=== PATIENT | female | born 1965 | race Caucasian/White ===

== ENCOUNTER 2018-05-29 14:25 | Inpatient (IN) | payer MEDICARE, MEDICAID ==
--- NOTE | 2018-05-29 16:03 | RAD ---
2 VIEWS RIGHT FEMUR: Date: 05/29/18 HISTORY: Pain after injury and fall. FINDINGS: AP and lateral views of right femur obtained. Images demonstrate a displaced intertrochanteric fractu re involving the proximal right femur. Lesser trochanter is medially displaced. There is some impacti on and shortening. IMPRESSION: Intertrochanteric proximal right femoral fracture. POS: [facility]
--- NOTE | 2018-05-29 16:04 | RAD ---
AP VIEW PELVIS: Date: 05/29/18 HISTORY: Pelvic pain. FINDINGS/IMPRESSION: AP view of pelvis obtained and demonstrates intertrochanteric proximal right femoral fracture. POS: [facility]
[2018-05-29] MEDS ORDERED: Morphine 4 MG/ML VIAL ONE (16:41)
[2018-05-29] MEDS ORDERED: Fentanyl 100 MCG/2 ML VIAL ONE (16:54)
--- NOTE | 2018-05-29 17:50 | RAD ---
FRONTAL RADIOGRAPH CHEST: Date: 05/29/18 COMPARISON: None. HISTORY: Preoperative patient, seizure. FINDINGS: No pneumothorax or pleural fluid. No focal consolidation or alveolar edema. IMPRESSION: No acute findings. POS: [facility]
[2018-05-29 18:06] LABS: Hemoglobin 8.7 g/dL (12.0-16.0); Mean Corpuscular HGB CONC 29.4 g/dL (32.0-36.0); Mean Corpuscular Hemoglobin 18.9 pg (27.0-31.0); Mean Corpuscular Volume 64.4 fL (78.0-98.0); Mean Platelet Volume 9.1 fL (7.4-10.4); Platelet Count 176 thou/uL (130-400); RBC Distribution Width 17.7 % (11.5-14.5); Red Blood Cell (RBC) Count 4.62 mill/uL (4.20-5.40); White Blood Cell (WBC) Count 4.8 thou/uL (4.8-10.8)
[2018-05-29 18:11] LABS: PTT 28.4 SEC (22.9-36.1); Prothrombin Time 13.7 SEC (12.0-14.7)
[2018-05-29] MEDS ORDERED: Dextrose 5% in Water 1,000 ML IV PRN (18:15)
[2018-05-29] MEDS ORDERED: hydrALAZINE 20 MG/ML VIAL SLOW IVP PRN (18:15)
[2018-05-29] MEDS ORDERED: Dextrose 50% Abboject 50 ML SYRINGE SLOW IVP PRN (18:15)
[2018-05-29] MEDS ORDERED: HumaLOG 300 UNITS/3 ML VIAL SC PRN (18:15)
[2018-05-29 18:25] LABS: #Lymphocytes 1.3 thou/uL (1.20-3.40); #Monocytes 0.4 thou/uL (0.11-0.59); #Neutrophils 3.1 thou/uL (1.40-6.50); %Basophils 0.1 % (0.0-1.0); %Eosinophils 0.3 % (0.0-10.0); %Lymphocytes 26.6 % (21.0-51.0); %Monocytes 7.7 % (0.0-10.0); %Neutrophils 65.2 % (42.0-75.0); Anisocytosis SLIGHT = 6-15 cells (100X) (0-5/hpf); Elliptocytes SLIGHT = 2-5 cells (100X) (0-1/hpf); Hypochromia MODERATE=16-30 cells (100X) (0-5/hpf); MDiff Complete? YES; Microcytosis MODERATE=15-30 cells (100X) (0-5/hpf); Platelet Morphology Comment Appears Adequate; Poikilocytosis SLIGHT = 6-15 cells (100X) (0-5/hpf); Tear Drops SLIGHT = 2-5 cells (100X) (0-1/hpf)
[2018-05-29 18:30] LABS: ALT (SGPT) 16 U/L (8-55); AST (SGOT) 27 U/L (5-34); Acetaminophen Less than 6.0 mcg/mL (10.0-30.0); Alcohol Less than 10 mg/dL (Less than 10); Alkaline Phosphatase 132 U/L (40-150); Anion Gap 17 mmol/L (10-20); BUN (Urea Nitrogen) 7 mg/dL (9.8-20.1); Bilirubin, Total 0.5 mg/dL (0.2-1.2); Calc. Creatinine Clearance 0 mL/min (70-130); Calcium 8.7 mg/dL (7.8-10.44); Carbon Dioxide 19 mmol/L (22-29); Chloride 105 mmol/L (98-107); Estimated GFR-MDRD Greater than 90; Globulin 3.2 g/dL (2.4-3.5); Glucose 88 mg/dL (70-105); Potassium 3.2 mmol/L (3.5-5.1); Protein, Total 7.2 g/dL (6.0-8.3); Salicylate Less than 8.0 mg/dL (15.0-30.0); Sodium 138 mmol/L (136-145)
[2018-05-29] MEDS ORDERED: traMADol HCl 50 MG TAB PO PRN ×2 (18:31)
[2018-05-29] MEDS ORDERED: CEFAZOLIN 2 GM/50 ML BAG IVPB SCH (18:45)
[2018-05-29] MEDS: Acetaminophen 325 MG TAB PO SCH (22:37)
[2018-05-29] MEDS: Senokot S 8.6-50 MG TAB PO SCH (22:38)
[2018-05-29] MEDS: Cyclobenzaprine 10 MG TAB PO PRN (22:38)
[2018-05-29] MEDS: Famotidine/PF 20 mg/2ml Vial SLOW IVP SCH (22:38)
[2018-05-29] MEDS: Gabapentin 100 MG CAP PO SCH (22:38)
[2018-05-29] MEDS: Sodium Chloride 0.9% 1,000 ML IV SCH (22:40)
--- NOTE | 2018-05-29 22:44 | HP ---
REFERRING PHYSICIAN: Dr. Collette Sharif. TRAUMA SURGEON: Dr. Simeon Viveros. CONSULTING PHYSICIAN: Dr. Goldy Nichols. HISTORY OF PRESENT ILLNESS: A 53-year-old female presents this afternoon to the emergency department status post fall of unknown etiology with a right intertrochanteric femur fracture. The patient reports she does not remember the fall. She reports waking up this morning and having significant right proximal thigh pain. She lives with her son and asked him what happened. Her son reported that she had fallen and he had picked her up and put her in the bed. The patient is amnestic to the events. She does not take any anticoagulants. She does not report any other recent incidence of falls. REVIEW OF SYSTEMS: All additional review of systems negative except as indicated above. PAST MEDICAL HISTORY: Nutrition malabsorption, anxiety, PTSD, and depression. PAST SURGICAL HISTORY: Gastric bypass with sleeve revision, cholecystectomy. SOCIAL HISTORY: The patient smokes 4th of a pack of tobacco cigarettes each day, reports occasional alcohol use as early as the past 24 hours. She denies any illegal drug use. MEDICATIONS: She takes 0.5 mg alprazolam b.i.d. and 45 mg Remeron at bedtime. ALLERGIES: MORPHINE, ASPIRIN, DILAUDID, AND ZOFRAN. PHYSICAL EXAMINATION: VITAL SIGNS: Pulse 92, blood pressure 146/64, respirations 18, temperature 97.6, saturating 99% on room air. PRIMARY SURVEY: Airway intact, equal breath sounds bilaterally, 2+ pulses in radial, femoral, and DP/PT bilaterally. GCS 15. Gross motor and sensation intact. No lacerations, bruises, or external bleeding. SECONDARY ASSESSMENT: HEAD: Normocephalic, atraumatic, no gross palpable skull deformities/tenderness. EYES: Pupils 3 to 2 bilaterally, pupils equal, round, reactive to light, patient tracking, sclerae noninjected. ENT: No hemotympanum. No epistaxis. No septal hematoma. Midface is stable to palpation. No blood in oropharynx, dentition intact-patient missing upper teeth, which is chronic, no anterior neck injury/crepitus/tenderness. C-SPINE: No step-offs or deformities, nontender. No C-collar in place. CHEST: Nontender. No crepitus. No abrasions/ecchymosis, equal chest movement. ABDOMEN: Soft, nontender, nondistended. PELVIS: Stable to palpation. Tenderness on the right lateral hip, no abrasions or ecchymoses noted. GENITOURINARY: Deferred. EXTREMITIES: No gross deformity, no abrasions or ecchymosis noted, 2+ radial/femoral/DP/PT pulses present bilaterally, tenderness to right upper thigh. BACK/SPINE: No step-offs, deformities, or tenderness to palpation of thoracic/lumbar spine. No abrasions/ecchymosis noted. NEURO: 5/5 strength in bilateral child support investigator, plantar flexion and dorsal flexion. Gross normal sensation x4 extremities. LABORATORY DATA: White count 4.8, hemoglobin 8.7, hematocrit 29.7, platelets 176. INR 1.0. Sodium 138, potassium 3.2, chloride 105, carbon dioxide 19, BUN 7, creatinine 0.58, glucose 88. DIAGNOSTIC DATA: X-ray of the right femur demonstrates intertrochanteric proximal right femur fracture. Chest x-ray demonstrates no pneumothorax or pleural effusion. No focal consolidation or alveolar edema. The patient also received an EKG which demonstrated normal sinus rhythm with no ST changes or ectopy. ASSESSMENT: 1. Status post fall with unknown etiology. 2. Right intertrochanteric proximal femur fracture. 3. History of nutritional malabsorption, anxiety, posttraumatic stress disorder, depression. PLAN: The patient will be admitted to the trauma service and be n.p.o. overnight. We will start pain control with Tylenol, ibuprofen, Flexeril, and tramadol. The patient has received an EKG which was within normal limits. Lab studies did not indicate reason for possible syncopal episode. We will complete echo before OR tomorrow. The patient was seen by Dr. Nichols and plan is to go to the OR at 1:00 p.m. on May 30 for fix of her right intertrochanteric femur fracture. The patient was discussed with Dr. Simeon Viveros. Job ID: [id number]
[2018-05-29] MEDS ORDERED: Morphine 4 MG/ML VIAL SLOW IVP PRN ×2 (22:47)
[2018-05-29 23:11] VITALS: BMI 21.4
[2018-05-29] MEDS: Fentanyl 100 MCG/2 ML VIAL SLOW IVP PRN (23:17)
[2018-05-30] MEDS: Promethazine HCl 25 MG/ML VIAL IM PRN ×3 (00:39→19:37)
[2018-05-30] MEDS: Fentanyl 100 MCG/2 ML VIAL SLOW IVP PRN ×5 (03:00→22:55)
[2018-05-30 06:34] LABS: Anion Gap 13 mmol/L (10-20); BUN (Urea Nitrogen) 5 mg/dL (9.8-20.1); Calc. Creatinine Clearance 104 mL/min (70-130); Calcium 8.3 mg/dL (7.8-10.44); Carbon Dioxide 22 mmol/L (22-29); Chloride 103 mmol/L (98-107); Estimated GFR-MDRD Greater than 90; Glucose 82 mg/dL (70-105); Sodium 135 mmol/L (136-145)
[2018-05-30 06:35] LABS: Phosphorus 2.9 mg/dL (2.3-4.7)
[2018-05-30 06:38] LABS: #Lymphocytes 1.5 thou/uL (1.20-3.40); #Monocytes 0.3 thou/uL (0.11-0.59); #Neutrophils 2.1 thou/uL (1.40-6.50); %Basophils 0.1 % (0.0-1.0); %Eosinophils 0.4 % (0.0-10.0); %Lymphocytes 37.8 % (21.0-51.0); %Monocytes 8.5 % (0.0-10.0); %Neutrophils 53.3 % (42.0-75.0); Hemoglobin 7.7 g/dL (12.0-16.0); Mean Corpuscular Hemoglobin 19.3 pg (27.0-31.0); Mean Corpuscular Volume 64.5 fL (78.0-98.0); Mean Platelet Volume 7.8 fL (7.4-10.4); Platelet Count 146 thou/uL (130-400); Potassium 2.8 mmol/L (3.5-5.1); RBC Distribution Width 17.5 % (11.5-14.5); Red Blood Cell (RBC) Count 3.99 mill/uL (4.20-5.40); White Blood Cell (WBC) Count 3.9 thou/uL (4.8-10.8)
[2018-05-30] MEDS ORDERED: Potassium Chloride 40 MEQ in Premix Bag 1 BAG IVPB SCH (07:00)
--- NOTE | 2018-05-30 07:18 | CON ---
DATE OF CONSULTATION: 05/29/2018 BRIEF HISTORY OF PRESENT ILLNESS: The patient was examined in the [facility] Emergency Room. She is a 53-year-old female, who early this morning apparently had a fall, although she does not recall the event and it was unwitnessed. Earlier this morning, she was found to be unable to ambulate with complaints of right hip pain. She reports that the evening prior to this episode, she did have a seizure. She was brought to the hospital by her son. X-rays were obtained and showed a comminuted intertrochanteric femur fracture on the right side and as such, the patient now admitted to the Trauma Service with orthopedic consultation requested. PAST MEDICAL HISTORY: Remarkable for a history of seizure, history of anxiety, and history of depression. PAST SURGICAL HISTORY: Includes gastric bypass with sleeve revision as well as cholecystectomy. MEDICATIONS: The patient takes, 1. Remeron. 2. Alprazolam. ALLERGIES: TO MORPHINE, ASPIRIN, DILAUDID, AND ZOFRAN. SOCIAL HISTORY: She smokes cigarettes daily with a pack lasting approximately four days. She does drink alcohol occasionally. REVIEW OF SYSTEMS: Denies recent fevers, chills, or sweats. She does report a recent seizure that she says was last night. No chest pain or shortness of breath. She denies numbness or tingling in the lower extremity. FAMILY HISTORY: Noncontributory. PHYSICAL EXAMINATION: VITAL SIGNS: Temperature 97.6, heart rate of 92, respiratory rate of 18, and blood pressure of 146/64. HEENT: Atraumatic and normocephalic. HEART: Shows a regular rate and rhythm without murmur. LUNGS: Clear to auscultation bilaterally with good breath sounds. There is no chest wall pain. ABDOMEN: Soft and nontender. Her pelvis is stable to lateral compression. EXTREMITIES: Remarkable for bilateral upper extremities with no deformities and no complaints of pain, and left lower extremity also without deformity and no complaints of pain and normal distal sensation subjectively. The right lower extremity is remarkable for being held in slight external rotation and some shortening of the femur is noted. She has pain with any type of motion of this leg, referred to the groin area and lateral proximal hip. The knee, ankle, and foot appear atraumatic. She has intact subjective sensation in the foot. She has no pain with passive stretch of the toes or ankles. She has 2+ dorsalis pedis pulse. LABORATORY DATA: White count 4.8, hematocrit 29.7, and 176,000 platelets. IMAGING STUDIES: X-rays right femur demonstrate a right intertrochanteric femur fracture with displacement. ASSESSMENT: A 53-year-old lady, status post fall of unknown etiology with sustaining a right intertrochanteric femur fracture. PLAN: At this time, the patient has been admitted to the Trauma Service. We will allow her to eat this evening, so they can complete her medical workup in anticipation for surgical stabilization of this intertrochanteric femur fracture. Today, I discussed with patient that we will proceed with a trochanteric femoral nail to stabilize this fracture. We also discussed risks of surgery which include, but are not limited to bleeding, infection, nerve injury, DVT, PE, malunion, nonunion, and hardware failure as well as loss of limb or life. The patient appears to understand and does wish to proceed. Consent will be obtained prior to surgery. Job ID: [id number]
[2018-05-30 07:19] LABS: Hypochromia MARKED = >30 cells (100X) (0-5/hpf); MDiff Complete? YES; Microcytosis MODERATE=15-30 cells (100X) (0-5/hpf); Ovalocytes SLIGHT = 2-5 cells (100X) (0-1/hpf); Platelet Morphology Comment Appears Adequate; Polychromasia SLIGHT = 2-3 cells (100X) (0-2/hpf); Target Cells SLIGHT = 2-5 cells (100X) (0-1/hpf); Tear Drops SLIGHT = 2-5 cells (100X) (0-1/hpf)
[2018-05-30] MEDS: Acetaminophen 325 MG TAB PO SCH ×4 (07:27→23:02)
[2018-05-30] MEDS: Sodium Chloride 0.9% 1,000 ML IV SCH ×2 (07:27→16:21)
[2018-05-30] MEDS ORDERED: Potassium Phosphate 30 MMOL in Sodium Chloride 0.9% 500 ML IVPB ONE (07:42)
[2018-05-30] MEDS: Potassium Chloride 20 MEQ in Premix Bag 1 BAG IVPB SCH ×2 (08:41→16:22)
[2018-05-30] MEDS: Gabapentin 100 MG CAP PO SCH ×3 (08:41→20:08)
[2018-05-30] MEDS: Polyethylene Glycol 3350 17 GM Packet PO SCH (08:42)
[2018-05-30] MEDS: Senokot S 8.6-50 MG TAB PO SCH ×2 (08:42→20:08)
[2018-05-30] MEDS: Famotidine/PF 20 mg/2ml Vial SLOW IVP SCH ×2 (08:44→20:07)
[2018-05-30] MEDS ORDERED: CEFAZOLIN 2 GM/50 ML BAG ONE (11:59)
[2018-05-30 13:04] LABS: Anion Gap 11 mmol/L (10-20); Carbon Dioxide 22 mmol/L (22-29); Chloride 104 mmol/L (98-107); Potassium 3.4 mmol/L (3.5-5.1); Sodium 134 mmol/L (136-145)
[2018-05-30] MEDS ORDERED: CEFAZOLIN/Water 2 GM/20 ML SYRINGE SLOW IVP SCH (13:15)
[2018-05-30] MEDS ORDERED: Midazolam HCl 2 mg/2 ml Vial ONE (13:22)
[2018-05-30] MEDS ORDERED: Midazolam HCl 5 mg/5 ml Vial ONE (13:26)
[2018-05-30] MEDS ORDERED: KETAMINE 100 MG/ML (5ML VIAL) ONE (13:26)
[2018-05-30] MEDS ORDERED: Propofol 500 MG/50 ML VIAL ONE (14:21)
[2018-05-30] MEDS: CEFAZOLIN 2 GM/50 ML-DEXTROSE 2 GM in Premix Bag 1 BAG IVPB SCH ×2 (14:21→22:48)
[2018-05-30] MEDS ORDERED: Promethazine HCl 25 MG/ML VIAL IM PRN (14:50)
[2018-05-30] MEDS ORDERED: Promethazine HCl 25 MG/ML VIAL SLOW IVP PRN (14:50)
--- NOTE | 2018-05-30 15:04 | PRG ---
DATE OF SERVICE: 05/30/2018 SUBJECTIVE: The patient is a status post fall with a right intertrochanteric femur fracture. The patient was seen this morning, lying in bed, reported right thigh pain and tenderness. She is going to the OR today with Dr. Nichols. She has been n.p.o. and is on IV fluids. OBJECTIVE: VITAL SIGNS: Temperature is 99.3, pulse 78, respirations 18, oxygen saturation 98% on room air, and blood pressure 128/75. GENERAL: Alert and well appearing, middle-aged woman, lying in bed. NEURO: GCS is 15. Alert and oriented x3. Gross motor and sensation intact. Pupils are equal, round, and reactive to light. PULMONARY: No signs of acute distress. Equal chest rise and fall. Lung zarco are clear bilaterally. HEART: Regular rate and rhythm. No murmurs, gallops, or rubs. GASTROINTESTINAL: Abdomen is soft, nontender, and nondistended. Positive bowel sounds. EXTREMITIES: Gross motor and sensation intact. 2+ pulses in all extremities. No swelling. Right thigh tenderness to palpation. LABORATORY FINDINGS: White count 3.9, hemoglobin 7.7, hematocrit 25.8, and platelets 146. Sodium 135, potassium 2.8, chloride 103, carbon dioxide 22, BUN 5, and creatinine 0.56. DIAGNOSTIC FINDINGS: There were no diagnostic findings to report. ASSESSMENT: 1. Status post fall of unknown etiology. 2. Right intertrochanteric femur fracture. 3. History of nutritional malabsorption. 4. Anxiety. 5. Post-traumatic stress disorder. 6. Depression. PLAN: The patient will go to the OR today with Dr. Nichols. She will continue to be n.p.o. with normal saline. We will continue current pain regimen. Physical and Occupational Therapy will see the patient postop. The patient received an EKG and chest x-ray in the emergency department, which were within normal limits. She is pending an echo today. We will follow up results. The patient was seen and examined today by Dr. Coleman, during morning rounds. Job ID: [id number]
[2018-05-30] MEDS ORDERED: PROPOFOL 200 MG/20 ML VIAL ONE (15:26)
[2018-05-30] MEDS ORDERED: PHENYLEPHRINE-NS 100 MCG/ML 10 ML SYRINGE ONE (15:26)
[2018-05-30] MEDS: Mirtazapine 30 MG TAB PO SCH (20:08)
[2018-05-31] MEDS: Promethazine HCl 25 MG/ML VIAL IM PRN ×3 (00:34→21:06)
[2018-05-31] MEDS: Fentanyl 100 MCG/2 ML VIAL SLOW IVP PRN ×5 (03:12→23:46)
[2018-05-31] MEDS: Cyclobenzaprine 10 MG TAB PO PRN ×2 (03:14→12:01)
[2018-05-31] MEDS: Sodium Chloride 0.9% 1,000 ML IV SCH ×3 (03:26→21:04)
[2018-05-31 06:21] LABS: #Lymphocytes 1.8 thou/uL (1.20-3.40); #Monocytes 0.4 thou/uL (0.11-0.59); #Neutrophils 3.2 thou/uL (1.40-6.50); %Basophils 0.5 % (0.0-1.0); %Eosinophils 0.3 % (0.0-10.0); %Monocytes 7.3 % (0.0-10.0); %Neutrophils 58.9 % (42.0-75.0); Mean Corpuscular Hemoglobin 19.5 pg (27.0-31.0); Mean Platelet Volume 7.3 fL (7.4-10.4); Platelet Count 168 thou/uL (130-400); RBC Distribution Width 17.8 % (11.5-14.5); Red Blood Cell (RBC) Count 4.09 mill/uL (4.20-5.40); White Blood Cell (WBC) Count 5.5 thou/uL (4.8-10.8)
[2018-05-31 06:45] LABS: Anion Gap 13 mmol/L (10-20); BUN (Urea Nitrogen) Less than 4 mg/dL (9.8-20.1); Calc. Creatinine Clearance 95 mL/min (70-130); Calcium 8.4 mg/dL (7.8-10.44); Carbon Dioxide 22 mmol/L (22-29); Chloride 103 mmol/L (98-107); Estimated GFR-MDRD Greater than 90; Glucose 80 mg/dL (70-105); Magnesium 1.6 mg/dL (1.6-2.6); Phosphorus 2.5 mg/dL (2.3-4.7); Sodium 135 mmol/L (136-145)
[2018-05-31 06:50] LABS: Potassium 2.9 mmol/L (3.5-5.1)
[2018-05-31] MEDS: Acetaminophen 325 MG TAB PO SCH ×4 (06:53→23:48)
[2018-05-31] MEDS ORDERED: Potassium Chloride 40 MEQ in Premix Bag 1 BAG IVPB SCH (07:15)
[2018-05-31] MEDS ORDERED: Potassium Chloride 40 MEQ in Sodium Chloride 0.9% 250 ML 250 ML IVPB SCH (07:30)
[2018-05-31] MEDS ORDERED: Magnesium Sulfate 3 GM in Sodium Chloride 0.9% 250 ML 250 ML IVPB SCH (07:30)
[2018-05-31] MEDS: Gabapentin 100 MG CAP PO SCH ×3 (08:08→21:06)
[2018-05-31] MEDS: Famotidine/PF 20 mg/2ml Vial SLOW IVP SCH (08:09)
[2018-05-31] MEDS: Polyethylene Glycol 3350 17 GM Packet PO SCH (08:09)
[2018-05-31] MEDS ORDERED: Magnesium Sulfate 4 GM, Potassium Chloride 40 MEQ in Sodium Chloride 0.9% 250 ML 250 ML IVPB SCH (10:15)
[2018-05-31 11:22] LABS: Troponin I Less than 0.010 ng/mL (< 0.028)
[2018-05-31] MEDS: Senokot S 8.6-50 MG TAB PO SCH (11:51)
--- NOTE | 2018-05-31 14:24 | RAD ---
INTRAOPERATIVE IMAGING OF RIGHT HIP: Date; 05/30/18 HISTORY: Fracture, status post open reduction and internal fixation. FINDINGS: Three intraoperative images are provided, demonstrating treatment of the previously noted displaced p roximal right femur fracture. Hardware includes a screw traversing the femoral neck and an antegrade intramedullary suha with a distal interlocking screw. IMPRESSION: Open reduction and internal fixation as above. POS: [facility]
--- NOTE | 2018-05-31 18:09 | PRG ---
DATE OF SERVICE: 05/31/2018 SUBJECTIVE: The patient is status post fall with a right intertrochanteric femur fracture. The patient is postop day #1. The patient is lying in bed, in no distress at this time. The patient reports that her pain is well controlled. The patient is tolerating a regular diet, but is requesting to have Glucerna also. OBJECTIVE: VITAL SIGNS: Temperature 98.7, pulse 81, respirations 16, SpO2 of 98% on room air, blood pressure 126/79. GENERAL: The patient is awake and alert, in no distress. NEUROLOGIC: GCS is 15. Alert and oriented x3. Gross motor and sensation intact. RESPIRATORY: No signs of distress. Equal chest rise and fall. CARDIOVASCULAR: Regular rate and rhythm. The patient did complain of palpitations, which she has had for several years. Heart rate was regular. GI: Abdomen is soft, nontender. The patient is passing gas. EXTREMITIES: Moves all extremities. Clean and dry dressing to right hip. No pedal edema. LABORATORY FINDINGS: WBC 5.5, RBC 4.09, hemoglobin 8.0, hematocrit 26.5, platelets 168. Sodium 135, potassium 2.9, chloride 103, CO2 of 22, BUN less than 4, creatinine 0.61, glucose 80, calcium 8.4, phosphorus 2.5, and magnesium 1.6. Troponin less than 0.010. DIAGNOSTICS: No diagnostics reported. IMPRESSION: 1. Status post fall of unknown etiology. 2. Right intertrochanteric femur fracture, postop day #1. 3. History of nutritional malabsorption. 4. Anxiety. 5. Posttraumatic stress disorder. 6. Depression. 7. Hypokalemia. PLAN: We will continue the patient's pain regimen. Physical therapy and occupational therapy to continue to work with the patient. We will obtain a troponin and repeat if elevated due to the patient complaining of palpitations occasionally. We will replace the patient's electrolytes and re-evaluate tomorrow. We will order Glucerna to supplement the patient's diet. Rehab screen has been ordered. Pending echo results. We will continue comfort measures. This patient was seen and examined today by Dr. Coleman during morning rounds. Job ID: [id number]
[2018-05-31] MEDS: Famotidine 20 MG TAB PO SCH (21:06)
[2018-05-31] MEDS: Mirtazapine 30 MG TAB PO SCH (21:07)
[2018-06-01] MEDS: Fentanyl 100 MCG/2 ML VIAL SLOW IVP PRN ×5 (03:58→16:42)
[2018-06-01] MEDS: Promethazine HCl 25 MG/ML VIAL IM PRN ×3 (05:28→15:29)
[2018-06-01] MEDS: Acetaminophen 325 MG TAB PO SCH ×4 (05:29→23:24)
[2018-06-01] MEDS: Sodium Chloride 0.9% 1,000 ML IV SCH ×2 (07:41→16:48)
[2018-06-01 08:33] LABS: Anion Gap 9 mmol/L (10-20); BUN (Urea Nitrogen) 4 mg/dL (9.8-20.1); Calc. Creatinine Clearance 114 mL/min (70-130); Calcium 8.3 mg/dL (7.8-10.44); Carbon Dioxide 25 mmol/L (22-29); Chloride 107 mmol/L (98-107); Estimated GFR-MDRD Greater than 90; Glucose 91 mg/dL (70-105); Potassium 3.1 mmol/L (3.5-5.1); Sodium 138 mmol/L (136-145)
[2018-06-01] MEDS ORDERED: Potassium Phosphate 30 MMOL in Sodium Chloride 0.9% 500 ML IVPB SCH (08:45)
[2018-06-01] MEDS: Gabapentin 100 MG CAP PO SCH ×3 (09:00→20:44)
[2018-06-01] MEDS: Cyclobenzaprine 10 MG TAB PO PRN (09:01)
[2018-06-01] MEDS: Famotidine 20 MG TAB PO SCH ×2 (09:01→20:44)
[2018-06-01] MEDS: Polyethylene Glycol 3350 17 GM Packet PO SCH (09:01)
[2018-06-01] MEDS: Senokot S 8.6-50 MG TAB PO SCH ×3 (09:02→20:50)
[2018-06-01] MEDS ORDERED: Ferrous Sulfate 325 MG TAB PO PRN (12:38)
--- NOTE | 2018-06-01 19:10 | PRG ---
DATE OF SERVICE: 06/01/2018 SUBJECTIVE: This is a 53-year-old female, status post fall with a right intertrochanteric femur fracture, postop day #2. The patient is sitting up in bed, in no distress at this time. The patient is eating breakfast. States her appetite has not been very good, but this is normal for the patient. The patient reports pain is adequately controlled. The patient did have overnight highest temperature of 99.9. OBJECTIVE: VITAL SIGNS: Temperature 99.2, pulse 82, respirations 20, SpO2 100 % on room air, blood pressure 102/54. GENERAL: The patient awake, alert, in no distress. GCS 15. RESPIRATORY: No signs of distress. Equal chest rise and fall. Respirations nonlabored. CARDIOVASCULAR: Regular rate and rhythm. No pedal edema. GI: Abdomen is soft, nontender. EXTREMITIES: Moves all extremities. Strength 5/5. Clean and dry dressing to right hip. No pedal edema. LABORATORY DATA: Sodium 138, potassium 3.1, chloride 107, BUN 4, creatinine 0.51, estimated GFR greater than 90, glucose 91, calcium 8.3. DIAGNOSTICS: There are no diagnostics to report today. IMPRESSION: 1. Status post fall, unknown etiology. 2. Right intratrochanteric femur fracture, postop day #2. 3. History of nutritional mouth absorption. 4. Anxiety. 5. Posttraumatic stress disorder. 6. Depression. 7. Hypokalemia. PLAN: We will continue the patient's pain regimen. Continue physical therapy and occupational therapy. Pending placement to a custodial facility in [place]. We will replace the patient's potassium again today. We will continue supplement with Glucerna. We will add vitamin C and iron. The patient has been discussed with the attending surgeon and agrees with the plan. Job ID: [id number] [facility]
[2018-06-01] MEDS: Mirtazapine 30 MG TAB PO SCH (20:44)
--- NOTE | 2018-06-02 00:05 | EKG ---
Test Reason : SURGERY Blood Pressure : / mmHG Vent. Rate : 084 BPM Atrial Rate : 084 BPM P-R Int : 134 ms QRS Dur : 074 ms QT Int : 414 ms P-R-T Axes : 064 044 046 degrees QTc Int : 489 ms Normal sinus rhythm Prolonged QT Abnormal ECG Confirmed by RACHEAL GAVIN, CATHY ([id number]), tape editor ARUN GHOSH ([id number]) on 06/02/2018 12:04:22 AM Referred By: Confirmed By:CATHY SPRINGER MD
[2018-06-02] MEDS: Fentanyl 100 MCG/2 ML VIAL SLOW IVP PRN ×5 (02:17→22:34)
[2018-06-02] MEDS ORDERED: Ibuprofen 800 MG TAB PO PRN (04:12)
[2018-06-02] MEDS: Acetaminophen 325 MG TAB PO SCH ×4 (06:24→23:52)
[2018-06-02] MEDS: Promethazine HCl 25 MG/ML VIAL IM PRN ×4 (06:24→23:50)
[2018-06-02] MEDS: Sodium Chloride 0.9% 1,000 ML IV SCH ×2 (06:29→12:05)
[2018-06-02 07:49] LABS: Anion Gap 17 mmol/L (10-20); BUN (Urea Nitrogen) 4 mg/dL (9.8-20.1); Calc. Creatinine Clearance 119 mL/min (70-130); Calcium 8.1 mg/dL (7.8-10.44); Carbon Dioxide 18 mmol/L (22-29); Chloride 105 mmol/L (98-107); Estimated GFR-MDRD Greater than 90; Glucose 76 mg/dL (70-105); Magnesium 1.6 mg/dL (1.6-2.6); Phosphorus 2.4 mg/dL (2.3-4.7); Potassium 3.6 mmol/L (3.5-5.1); Sodium 136 mmol/L (136-145)
[2018-06-02] MEDS: Famotidine 20 MG TAB PO SCH ×2 (08:26→20:26)
[2018-06-02] MEDS: Ascorbic Acid 500 mg Chewable Tablet PO SCH (08:26)
[2018-06-02] MEDS: Gabapentin 100 MG CAP PO SCH ×3 (08:26→20:26)
[2018-06-02] MEDS: Polyethylene Glycol 3350 17 GM Packet PO SCH (08:28)
[2018-06-02] MEDS: Senokot S 8.6-50 MG TAB PO SCH (08:28)
[2018-06-02] MEDS ORDERED: Senokot S 8.6-50 MG TAB PO SCH (12:45)
[2018-06-02] MEDS ORDERED: Senokot S 8.6-50 MG TAB PO PRN (12:49)
[2018-06-02 12:56] LABS: Anisocytosis MODERATE=16-30 cells (100X) (0-5/hpf); Eosinophils 2 % (0-10); Hemoglobin 6.9 g/dL (12.0-16.0); Hypochromia MODERATE=16-30 cells (100X) (0-5/hpf); Large Platelets SLIGHT; Lymphocytes 12 % (21-51); MDiff Complete? YES; Mean Corpuscular HGB CONC 27.5 g/dL (32.0-36.0); Mean Corpuscular Hemoglobin 18.1 pg (27.0-31.0); Mean Corpuscular Volume 65.6 fL (78.0-98.0); Mean Platelet Volume 7.7 fL (7.4-10.4); Microcytosis MODERATE=15-30 cells (100X) (0-5/hpf); Monocytes 5 % (0-10); Neutrophil 76 % (42-75); Platelet Count 193 thou/uL (130-400); Platelet Morphology Comment Appears Adequate; Polychromasia SLIGHT = 2-3 cells (100X) (0-2/hpf); RBC Distribution Width 18.5 % (11.5-14.5); Reactive Lymphocytes 4 % (0-10); Red Blood Cell (RBC) Count 3.81 mill/uL (4.20-5.40); Target Cells MODERATE= 6-15 cells (100X) (0-1/hpf); White Blood Cell (WBC) Count 5.6 thou/uL (4.8-10.8)
--- NOTE | 2018-06-02 13:15 | PRG ---
DATE OF SERVICE: 06/02/2018 SUBJECTIVE: This is a 53-year-old female status post fall with a right intertrochanteric femur fracture, postop day #3. The patient is sitting up in bed, in no distress at this time. The patient just got done eating her breakfast and reports that she does have a better appetite today. The patient's pain continues to be well controlled. The patient had no reports of fever overnight. The patient does occasionally suffer from a dumping syndrome. The patient did state she did have an episode yesterday of dumping. OBJECTIVE: VITAL SIGNS: Temperature 98.3, pulse 98, respirations 15, SpO2 of 95% on room air, blood pressure 98/51. GENERAL: The patient is awake and alert. GCS 15. In no distress. RESPIRATORY: No signs of distress. Equal chest rise and fall. Bilateral breast sounds clear and nonlabored. CARDIOVASCULAR: Regular rate and rhythm. No pedal edema. GI: Abdomen is soft and nontender. Positive bowel sounds. EXTREMITIES: Moves all extremities. Strength 5/5. Right hip dressing is clean, dry, and intact. LABORATORY DATA: Sodium 136, potassium 3.6, chloride 105, BUN 4, creatinine 0.49, estimated GFR greater than 90, glucose 76, calcium 8.1, phosphorus 2.4, and magnesium 1.6. DIAGNOSTIC DATA: There is no diagnostic to review for today. IMPRESSION: 1. Status post fall, unknown etiology. 2. Right intertrochanteric femur fracture, postoperative day #3. 3. History of nutritional malabsorption. 4. Anxiety. 5. Posttraumatic stress disorder. 6. Depression. PLAN: We will continue the patient's pain regimen. Continue to work with Physical Therapy and Occupational Therapy. [facility] in [place]. The patient is started on Lovenox for DVT prophylaxis. The plan has been discussed with the attending surgeon and agrees with the plan. Job ID: [id number]
[2018-06-02] MEDS: Ibuprofen 800 MG TAB PO SCH ×2 (17:12→23:52)
[2018-06-02] MEDS: Mirtazapine 30 MG TAB PO SCH (20:27)
[2018-06-03] MEDS: Fentanyl 100 MCG/2 ML VIAL SLOW IVP PRN ×2 (02:47→07:28)
[2018-06-03] MEDS: Promethazine HCl 25 MG/ML VIAL IM PRN ×5 (04:09→20:53)
[2018-06-03] MEDS: Acetaminophen 325 MG TAB PO SCH ×3 (05:15→22:47)
[2018-06-03] MEDS: Ibuprofen 800 MG TAB PO SCH ×3 (05:16→22:47)
[2018-06-03] MEDS ORDERED: Ferrous Sulfate 325 MG TAB PO SCH ×2 (06:45→08:00)
[2018-06-03] MEDS: Gabapentin 100 MG CAP PO SCH ×3 (07:26→20:44)
[2018-06-03] MEDS: Ascorbic Acid 500 mg Chewable Tablet PO SCH ×2 (07:26→16:11)
[2018-06-03] MEDS: Famotidine 20 MG TAB PO SCH ×2 (07:26→20:44)
[2018-06-03] MEDS: Polyethylene Glycol 3350 17 GM Packet PO SCH (07:28)
[2018-06-03 07:49] LABS: #Eosinphils 0.2 thou/uL (0.0-0.7); #Lymphocytes 1.6 thou/uL (1.20-3.40); #Monocytes 0.4 thou/uL (0.11-0.59); #Neutrophils 2.7 thou/uL (1.40-6.50); %Basophils 0.5 % (0.0-1.0); %Eosinophils 3.8 % (0.0-10.0); %Lymphocytes 32.8 % (21.0-51.0); %Monocytes 7.5 % (0.0-10.0); %Neutrophils 55.5 % (42.0-75.0); Hemoglobin 7.1 g/dL (12.0-16.0); Mean Corpuscular HGB CONC 28.4 g/dL (32.0-36.0); Mean Corpuscular Hemoglobin 18.6 pg (27.0-31.0); Mean Corpuscular Volume 65.5 fL (78.0-98.0); Mean Platelet Volume 11.7 fL (7.4-10.4); Platelet Count 283 thou/uL (130-400); RBC Distribution Width 18.4 % (11.5-14.5); Red Blood Cell (RBC) Count 3.79 mill/uL (4.20-5.40); White Blood Cell (WBC) Count 4.8 thou/uL (4.8-10.8)
[2018-06-03 08:28] LABS: Anion Gap 11 mmol/L (10-20); BUN (Urea Nitrogen) 8 mg/dL (9.8-20.1); Calc. Creatinine Clearance 102 mL/min (70-130); Calcium 8.6 mg/dL (7.8-10.44); Carbon Dioxide 24 mmol/L (22-29); Chloride 104 mmol/L (98-107); Estimated GFR-MDRD Greater than 90; Glucose 87 mg/dL (70-105); Phosphorus 3.2 mg/dL (2.3-4.7); Potassium 3.2 mmol/L (3.5-5.1); Sodium 136 mmol/L (136-145)
[2018-06-03] MEDS: ALPRAZolam 0.5 MG TAB PO SCH ×2 (08:32→20:44)
[2018-06-03 08:43] LABS: Hypochromia MARKED = >30 cells (100X) (0-5/hpf); MDiff Complete? YES; Microcytosis MARKED = >30 cells (100X) (0-5/hpf); Platelet Morphology Comment Appears Adequate; Polychromasia SLIGHT = 2-3 cells (100X) (0-2/hpf); Stomatocytes SLIGHT = 2-5 cells (100X) (0-1/hpf); Target Cells SLIGHT = 2-5 cells (100X) (0-1/hpf)
[2018-06-03] MEDS ORDERED: Enoxaparin Sodium 40 MG/0.4 ML SYRINGE SC SCH (09:00)
[2018-06-03] MEDS: Acetaminophen/Codeine 30-300mg Tablet PO PRN ×3 (10:36→22:56)
[2018-06-03] MEDS: Cyclobenzaprine 10 MG TAB PO PRN (10:36)
[2018-06-03] MEDS ORDERED: Acetaminophen 500 MG TAB PO SCH (12:00)
[2018-06-03] MEDS: Mirtazapine 30 MG TAB PO SCH (20:44)
[2018-06-03] MEDS: Enoxaparin Sodium 40 MG/0.4 ML SYRINGE SC SCH ×2 (20:44→20:50)
[2018-06-04] MEDS: Promethazine HCl 25 MG/ML VIAL IM PRN ×4 (01:42→20:54)
[2018-06-04] MEDS: Cyclobenzaprine 10 MG TAB PO PRN (01:55)
[2018-06-04] MEDS: Acetaminophen/Codeine 30-300mg Tablet PO PRN ×3 (05:04→19:22)
[2018-06-04] MEDS: Acetaminophen 325 MG TAB PO SCH ×2 (05:04→13:41)
[2018-06-04] MEDS: Ibuprofen 800 MG TAB PO SCH ×2 (05:12→15:11)
[2018-06-04 07:47] LABS: Hemoglobin 6.8 g/dL (12.0-16.0); Mean Corpuscular HGB CONC 28.9 g/dL (32.0-36.0); Mean Corpuscular Volume 65.7 fL (78.0-98.0); Mean Platelet Volume 11.9 fL (7.4-10.4); Platelet Count 298 thou/uL (130-400); RBC Distribution Width 18.4 % (11.5-14.5); Red Blood Cell (RBC) Count 3.57 mill/uL (4.20-5.40); White Blood Cell (WBC) Count 3.7 thou/uL (4.8-10.8)
[2018-06-04 07:50] LABS: Anion Gap 12 mmol/L (10-20); BUN (Urea Nitrogen) 7 mg/dL (9.8-20.1); Calc. Creatinine Clearance 106 mL/min (70-130); Calcium 8.5 mg/dL (7.8-10.44); Carbon Dioxide 25 mmol/L (22-29); Chloride 104 mmol/L (98-107); Estimated GFR-MDRD Greater than 90; Glucose 90 mg/dL (70-105); Phosphorus 3.6 mg/dL (2.3-4.7); Potassium 3.9 mmol/L (3.5-5.1); Sodium 137 mmol/L (136-145)
--- NOTE | 2018-06-04 07:50 | PRG ---
DATE OF SERVICE: 06/03/2018 SUBJECTIVE: This is a 53-year-old female status post fall with a right intertrochanteric femur fracture, postop day #4. The patient is in bed and in no current distress. The patient has finished eating her breakfast and reports that her appetite is good today. The patient's pain is well controlled. The patient denies any overnight fevers or any issues altogether. Yesterday, the patient's hemoglobin was less than 7, however, she was asymptomatic and did not receive any PRBCs. The patient has chronic anemia and typically is on home iron, however, has been refusing in hospital because regular iron causes severe malabsorption issues secondary to having short bowels. OBJECTIVE: VITAL SIGNS: Temperature is 99.0 Fahrenheit, pulse 79, respirations 18, O2 saturation 99% on room air, blood pressure 100/63. GENERAL: The patient is awake and alert. GCS is 15. In no distress. RESPIRATORY: No sign of acute distress. Equal chest rise and fall. GI: Abdomen is soft, nontender. EXTREMITIES: Moves all extremities strength 5/5. Right hip dressing is clean, dry, and intact. LABORATORY DATA: Hemoglobin 7.1, hematocrit 24.8, MCV 65.5. Sodium 136, potassium 3.2, chloride 104, carbon dioxide 24, anion gap 11, BUN 8, creatinine 0.57, GFR greater than 19, calcium 8.6, phosphorus 3.2, magnesium 2.0. DIAGNOSTIC DATA: No new diagnostic data or imaging to review today. IMPRESSION: 1. Status post fall, unknown etiology. 2. Right intertrochanteric femur fracture, postoperative day #4. 3. History of nutritional malabsorption. 4. History of bariatric surgery. 5. Anxiety. 6. Posttraumatic stress disorder. 7. Depression. 8. Chronic iron deficiency anemia secondary to #3. PLAN: Typically, the patient's pain regimen at home include Tylenol, T3, tramadol. Continue work with physical therapy and occupational therapy. Pending placement to a [place] [facility] facility in which she will need less than 30 days of care there. Continue Lovenox for DVT prophylaxis. The patient was seen and evaluated by Dr. Coleman during morning rounds. Discussed plan of care with the patient, given her agreement. Job ID: [id number] [facility]
[2018-06-04] MEDS: Famotidine 20 MG TAB PO SCH ×2 (09:17→20:54)
[2018-06-04] MEDS: Gabapentin 100 MG CAP PO SCH ×3 (09:17→20:54)
[2018-06-04] MEDS: Ascorbic Acid 500 mg Chewable Tablet PO SCH ×2 (09:19→16:17)
[2018-06-04 09:53] LABS: Eosinophils 3 % (0-10); Hypochromia MARKED = >30 cells (100X) (0-5/hpf); Lymphocytes 28 % (21-51); MDiff Complete? YES; Microcytosis MARKED = >30 cells (100X) (0-5/hpf); Monocytes 10 % (0-10); Neutrophil 58 % (42-75); Platelet Morphology Comment Appears Adequate; Polychromasia SLIGHT = 2-3 cells (100X) (0-2/hpf); Target Cells SLIGHT = 2-5 cells (100X) (0-1/hpf)
[2018-06-04] MEDS: ALPRAZolam 0.5 MG TAB PO SCH ×2 (10:32→22:26)
[2018-06-04] MEDS: Polyethylene Glycol 3350 17 GM Packet PO SCH (10:34)
--- NOTE | 2018-06-04 15:00 | PQF ---
CLINICAL DOCUMENTATION IMPROVEMENT CLARIFICATION FORM: ICD-10 Updated PLEASE DO AN ADDENDUM TO THE PROGRESS NOTE WITH ANY DOCUMENTATION UPDATES OR ADDITIONS AND CARRY THROUGH TO DC SUMMARY. THANK YOU. DATE: 06/04/18; 06/06/2018 ATTN: Dr. Coleman Please exercise your independent, professional judgment in responding to the clarification form. Clinical indicators are provided on the bottom of this form for your review Please check appropriate box(s): Mood Disorder Type (check appropriate):Status: Severity: [ ] Single past episode [ ] Mild [ ] Current episode [ ] Moderate [ ] In remission [ ] Severe [ ] Major Depressive Disorder [ ] Persistent Mood Disorder [ ] Other diagnosis __Chronic Depression [ ] Unable to determine In addition, please specify: Present on Admission (POA): [ x ] Yes [ ] No [ ] Unable to determine For continuity of documentation, please document condition throughout progress notes and discharge summary. Thank You. CLINICAL INDICATORS - SIGNS / SYMPTOMS / LABS H&P 05/29: Hx of depression. Medications: She takes 0.5mg alprazolam bid and 45 mg Remeron at bedtime PN 05/30-06/02: Depression RISKS: H&P: Hx of nutritional malabsorption, anxiety, posttraumatic stress disorder, depression. TREATMENT: Order 05/30: Remeron 45 mg po HS Thank you, Pilar (This form is maintained as a part of the permanent medical record) 2015 [employer]. All Rights Reserved Pilar Cheng RN, BSN [email or web address] Office: [phone] [facility]
--- NOTE | 2018-06-04 15:19 | PRG ---
DATE OF SERVICE: 06/04/2018 SUBJECTIVE: This is a 53-year-old female status post fall with a right intertrochanteric femur fracture, postop day #5. The patient is in bed and in no current distress. The patient reports that she is feeling more weak today. Her pain is well controlled on current pain regimen. She denies any overnight fevers or any issues altogether aside from weakness. Today, the patient's hemoglobin is less than 7. She denies palpitations or lightheadedness. The patient has chronic anemia and typically is on home iron, however, has been refusing in hospital ferrous sulfate replacement due to the fact that it upsets her stomach. She typically takes slow release iron at home but doesn't have means to access it in hostpial. Discussed with pharmacy yesterday to obtain slow-release iron, pending stock supply. OBJECTIVE: VITAL SIGNS: Temperature 98.8, pulse is 74, respirations 16, O2 saturation 96 on room air, and blood pressure is 92/52. GENERAL: The patient is awake and alert. GCS 15. In no acute distress. RESPIRATORY: Equal chest rise and fall. EXTREMITIES: Moves all extremity strength 5/5. Right hip dressing is clean, dry, and intact. Sanchez is in place. LABORATORY DATA: Hemoglobin 6.8, hematocrit 23.5, MCV is 65.5, platelets 283, potassium 3.9. DIAGNOSTIC DATA: No new diagnostic data or imaging to review today. IMPRESSION: 1. Status post fall, unknown etiology. 2. Right intertrochanteric femur fracture, postoperative day #5. 3. History of nutritional malabsorption. 4. Iron deficiency anemia. 5. Anxiety. 6. Posttraumatic stress disorder. 7. Depression. 8. Chronic iron deficiency anemia secondary from malabsorption. PLAN: 1. Continue pain regimen. Current pain management. Pain is controlled. 2. Continue work with physical therapy and occupational therapy. 3. Transfuse 1 PRBC. Pending pharmacy order slow-release iron. Working with [employer] to see if the patient's insurance would pay for Epogen in outpatient setting. 4. Pending nursing home facility placement, in which she will need less than 30 days of care. 5. Continue Lovenox for DVT prophylaxis. 6. Discontinue Sanchez. The patient was seen and evaluated by Dr. Coleman during morning rounds. We discussed plan of care with the patient, who agrees with the above plan. Job ID: [id number] [facility]
[2018-06-04] MEDS ORDERED: Enoxaparin Sodium 40 MG/0.4 ML SYRINGE SC SCH (15:30)
[2018-06-04] MEDS: Mirtazapine 30 MG TAB PO SCH (22:26)
[2018-06-05] MEDS: Ibuprofen 800 MG TAB PO SCH ×4 (00:12→19:53)
[2018-06-05] MEDS: Acetaminophen 325 MG TAB PO SCH ×4 (00:12→19:53)
[2018-06-05] MEDS: Acetaminophen/Codeine 30-300mg Tablet PO PRN ×4 (01:47→21:55)
[2018-06-05] MEDS: Promethazine HCl 25 MG/ML VIAL IM PRN ×5 (01:47→21:56)
[2018-06-05 06:20] LABS: #Basophils 0.1 thou/uL (0.0-0.2); #Eosinphils 0.1 thou/uL (0.0-0.7); #Lymphocytes 1.9 thou/uL (1.20-3.40); #Monocytes 0.4 thou/uL (0.11-0.59); #Neutrophils 4.3 thou/uL (1.40-6.50); %Basophils 1.1 % (0.0-1.0); %Lymphocytes 28.3 % (21.0-51.0); %Monocytes 6.3 % (0.0-10.0); %Neutrophils 63.3 % (42.0-75.0); Mean Corpuscular HGB CONC 30.1 g/dL (32.0-36.0); Mean Corpuscular Hemoglobin 20.5 pg (27.0-31.0); Mean Corpuscular Volume 68.2 fL (78.0-98.0); Mean Platelet Volume 11.8 fL (7.4-10.4); Platelet Count 390 thou/uL (130-400); RBC Distribution Width 20.3 % (11.5-14.5); Red Blood Cell (RBC) Count 4.39 mill/uL (4.20-5.40); White Blood Cell (WBC) Count 6.8 thou/uL (4.8-10.8)
[2018-06-05 06:42] LABS: Anion Gap 15 mmol/L (10-20); BUN (Urea Nitrogen) 6 mg/dL (9.8-20.1); Calc. Creatinine Clearance 108 mL/min (70-130); Calcium 8.7 mg/dL (7.8-10.44); Carbon Dioxide 23 mmol/L (22-29); Chloride 102 mmol/L (98-107); Estimated GFR-MDRD Greater than 90; Glucose 95 mg/dL (70-105); Magnesium 2.1 mg/dL (1.6-2.6); Phosphorus 3.6 mg/dL (2.3-4.7); Potassium 3.4 mmol/L (3.5-5.1); Sodium 137 mmol/L (136-145)
[2018-06-05] MEDS ORDERED: Potassium Chloride 20 MEQ TAB PO SCH ×2 (07:30→08:30)
[2018-06-05] MEDS: Ascorbic Acid 500 mg Chewable Tablet PO SCH ×2 (08:18→16:26)
[2018-06-05] MEDS: Gabapentin 100 MG CAP PO SCH ×3 (08:18→19:50)
[2018-06-05] MEDS: Polyethylene Glycol 3350 17 GM Packet PO SCH (08:18)
[2018-06-05] MEDS: Famotidine 20 MG TAB PO SCH ×2 (08:19→19:50)
[2018-06-05] MEDS ORDERED: Epoetin (ESRD) 20,000 UNITS/ML SC SCH (09:00)
[2018-06-05] MEDS: ALPRAZolam 0.5 MG TAB PO SCH ×2 (10:23→19:50)
--- NOTE | 2018-06-05 14:47 | PRG ---
DATE OF SERVICE: 06/05/2018 SUBJECTIVE: This is a 53-year-old female, status post fall with a right intertrochanteric femur fracture postop day #6. The patient is in wheelchair, in no current distress, just recently completed physical therapy. The patient reported that she is feeling weak today, but is able to tolerate her morning meal. Her pain is controlled on current pain regimen and does not want anything stronger. She denies any overnight issues aside from weakness. Today, patient's hemoglobin is improved at 9. She denies palpitations or lightheadedness. The patient has chronic anemia and has been on home iron. Currently order request for slow-release iron tablets are pending with pharmacy. OBJECTIVE: VITAL SIGNS: Temperature 98.9, pulse 83, respirations 18, O2 saturation 93% on room air. Blood pressure 93/57, 104/68. GENERAL: Patient is awake and alert. GCS 15. No acute distress. CARDIAC: Regular rate and rhythm. No rubs, murmurs, gallups RESPIRATORY: Equal chest rise and fall, no respiratory distress. EXTREMITIES: Moves all extremities, strength 5/5. Able to ambulate. Right hip dressing is clean, dry, and intact. LABORATORY DATA: Hemoglobin 9, hematocrit 29.9, potassium 3.4, creatinine 0.54. GFR greater than 90. DIAGNOSTIC DATA: No diagnostic data or imaging to review today. IMPRESSION: 1. Status post fall, unknown etiology. 2. Right intertrochanteric femur fracture with fixation, postop day #6. 3. History of nutritional malabsorption. 4. Iron deficiency anemia secondary to nutritional malabsorption. 5. Anxiety. 6. Post-traumatic stress disorder. 7. Depression. 8. Chronic iron-deficiency anemia secondary to malabsorption. PLAN: 1. Continue current pain management. Continue ambulation with Physical Therapy. Pain control. 2. Continue work with Physical Therapy and Occupational Therapy. 3. Status post PRBC x1 for HB <7. Improved hemoglobin today, at 9. Continue to monitor vital signs. We will start EPO therapy three times a week with the first dose being today. Working with home health care social worker to see patient's insurance will cover in outpatient setting. 4. Pending long-term facility placement in which she will need less than 30 days of care. 5. Continue Lovenox for DVT prophylaxis. The patient was seen and evaluated by Dr. V. Ohaju and myself during morning rounds. Discussed plan of care with the patient, agrees with the above-stated plan and intention. Job ID: [id number] MTDD
[2018-06-05] MEDS ORDERED: Enoxaparin Sodium 40 MG/0.4 ML SYRINGE SC SCH (15:30)
[2018-06-05] MEDS: Mirtazapine 30 MG TAB PO SCH (19:50)
[2018-06-06] MEDS: Acetaminophen 325 MG TAB PO SCH (04:37)
[2018-06-06] MEDS: Ibuprofen 800 MG TAB PO SCH (04:37)
[2018-06-06] MEDS: Acetaminophen/Codeine 30-300mg Tablet PO PRN ×2 (04:41→11:09)
[2018-06-06] MEDS: Promethazine HCl 25 MG/ML VIAL IM PRN (04:41)
[2018-06-06 06:51] LABS: #Basophils 0.1 thou/uL (0.0-0.2); #Eosinphils 0.1 thou/uL (0.0-0.7); #Lymphocytes 1.7 thou/uL (1.20-3.40); #Monocytes 0.6 thou/uL (0.11-0.59); %Basophils 1.1 % (0.0-1.0); %Eosinophils 1.5 % (0.0-10.0); %Lymphocytes 26.5 % (21.0-51.0); %Monocytes 9.3 % (0.0-10.0); %Neutrophils 61.6 % (42.0-75.0); Hemoglobin 8.4 g/dL (12.0-16.0); Mean Corpuscular HGB CONC 29.8 g/dL (32.0-36.0); Mean Corpuscular Hemoglobin 20.5 pg (27.0-31.0); Mean Corpuscular Volume 68.7 fL (78.0-98.0); Mean Platelet Volume 11.2 fL (7.4-10.4); Platelet Count 420 thou/uL (130-400); RBC Distribution Width 20.7 % (11.5-14.5); Red Blood Cell (RBC) Count 4.11 mill/uL (4.20-5.40); White Blood Cell (WBC) Count 6.5 thou/uL (4.8-10.8)
[2018-06-06 07:08] LABS: Anion Gap 11 mmol/L (10-20); BUN (Urea Nitrogen) 6 mg/dL (9.8-20.1); Calc. Creatinine Clearance 108 mL/min (70-130); Carbon Dioxide 26 mmol/L (22-29); Chloride 105 mmol/L (98-107); Estimated GFR-MDRD Greater than 90; Glucose 93 mg/dL (70-105); Phosphorus 3.7 mg/dL (2.3-4.7); Potassium 3.9 mmol/L (3.5-5.1); Sodium 138 mmol/L (136-145)
[2018-06-06] MEDS ORDERED: Promethazine HCl 25 MG/ML VIAL IM PRN (08:16)
--- NOTE | 2018-06-06 08:52 | OP ---
DATE OF PROCEDURE: 05/30/2018 PREOPERATIVE DIAGNOSIS: Right intertrochanteric femur fracture. POSTOPERATIVE DIAGNOSIS: Right intertrochanteric femur fracture. PROCEDURE PERFORMED: Right TFN to intertrochanteric femur fracture. ANESTHESIA: General. RETAIL BANKER: Michelle Bahena PA-C. IMPLANTS: Synthes TFNA 10 x 170 mm with 95 mm hip screw. ESTIMATED BLOOD LOSS: 100 mL. DRAINS: None. SPECIMENS: None. COMPLICATIONS: None. OUTCOME: Stable intertrochanteric femur fracture. INDICATIONS: The patient is a 53-year-old lady, status post fall sustaining a right intertrochanteric femur fracture. After discussion with the patient including risks and benefits, we decided to proceed with TFN stabilization. Informed consent has been obtained. I believe all questions answered. DESCRIPTION OF PROCEDURE: After the induction of general anesthesia, a time-out was performed followed by placement of the patient on the fracture table with the injured extremity brought into longitudinal traction and slight internal rotation and the well leg scissored in extension to allow for AP and lateral imaging of the right hip. Next, a sterile prep and drape were performed of the right lateral thigh. A small skin incision was made proximal to the tip of the greater trochanter. After skin was sharply incised, dissection was carried down bluntly such that the tip of the greater trochanter could be easily palpated. A threaded guidewire was then placed at the tip of the greater trochanter and delivered into the proximal femoral canal. An opening reamer was then passed over this guidewire. Next, a 10 x 170 mm TFNA device was passed from the starting point into the femoral canal proximally and delivered to an appropriate depth. Next, the hip screw jig was utilized. A small incision was made distal to the first and then a threaded guidewire was passed from the lateral cortex of the femur up the femoral neck into the femoral head approaching the center-center position. Measurement of this guidewire demonstrated that a 95 mm hip screw would be of appropriate length. This was followed by passage of the step reamer up the femoral neck in the femoral head over this threaded guidewire. Next, the 95 mm hip screw was inserted. Once inserted, the compression device was utilized to get further compression and reduction of the fracture. At the completion of this, the locking screw proximally was engaged and then backed off half a turn to allow for appropriate sliding of the hip screw. Next, the hip screw jig was removed and then a cannula was placed in the distal most hole of the jig, and a third incision was made for a single distal cross-lock screw placement which was done without difficulty. After completion of this, AP and lateral C-arm images were obtained to show appropriate positioning of the hardware and near anatomic alignment of the fracture. The three incisions were then irrigated with bulb syringe. The two distal incisions were closed with marie, the proximal one closed with 2-0 Vicryl and marie. Xeroform gauze and tape dressing was applied to the thigh and then the patient was transferred to recovery room in stable condition. There were no complications. She tolerated the procedure well. Job ID: [id number]
[2018-06-06] MEDS ORDERED: Senokot S 8.6-50 MG TAB PO SCH (09:00)
[2018-06-06] MEDS: Gabapentin 100 MG CAP PO SCH (09:50)
[2018-06-06] MEDS: ALPRAZolam 0.5 MG TAB PO SCH (09:50)
[2018-06-06] MEDS: Polyethylene Glycol 3350 17 GM Packet PO SCH (09:50)
[2018-06-06] MEDS: Ascorbic Acid 500 mg Chewable Tablet PO SCH (09:50)
[2018-06-06] MEDS: Famotidine 20 MG TAB PO SCH (09:50)
[2018-06-06 11:19] VITALS: TEMP 98.3
--- NOTE | 2018-06-06 14:05 | DIS ---
DATE OF ADMISSION: 05/29/2018 DATE OF DISCHARGE: 06/06/2018 RESIDENT Tameka Loja, PGY-1. ADMITTING ATTENDING: Glenn Coleman DO DISCHARGE ATTENDING: Glenn Coleman DO CONSULTS: Orthopedics, Dr. Nichols. PROCEDURES: Right TFN to intertrochanteric femur fracture. IMAGIN. Femur x-ray: Intertrochanteric proximal right femoral fracture. 2. Pelvis x-ray, same as above. Chest x-ray, no acute findings. PRIMARY DIAGNOSES: 1. Right intertrochanteric femur fracture secondary to fall from standing of unknown etiology. 2. Iron deficiency anemia secondary to nutritional malabsorption. SECONDARY DIAGNOSES: 1. 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 2. Anxiety. 3. Posttraumatic stress disorder. 4. Depression. DISCHARGE MEDICATIONS: 1. Alprazolam 0.5 mg p.o. b.i.d. 2. Mirtazapine 45 mg p.o. at bedtime. 3. Tylenol regular strength 650 mg p.o. q.8 hours for mild pain. 4. Acetaminophen with codeine 300 mg/30 mg tab, one tab p.o. q.6 hours p.r.n. for moderate pain. 5. Ascorbic acid 500 mg p.o. b.i.d. with meals. 6. Flexeril 5 mg p.o. t.i.d. 7. Procrit 3000 units subcutaneously Sunday, Sunday, Sunday for 2 weeks. 8. Ferrous sulfate 325 mg p.o. b.i.d. with meals. 9. Gabapentin 100 mg p.o. t.i.d. 10. Ibuprofen 800 mg p.o. q.8 hours p.r.n. for severe pain. 11. MiraLAX 17 g p.o. daily. 12. Senokot-S 2 tabs p.o. b.i.d. 13. Ultram 100 mg p.o. q.6 hours p.r.n. for extreme pain. 14. Ultram 50 mg p.o. q.6 hours p.r.n. for moderate pain. HISTORY OF PRESENT ILLNESS/HOSPITAL COURSE: Ms. Sandoval is a 53-year-old woman, who was admitted after a fall from standing with resultant right intertrochanteric femur fracture. The patient was admitted to the Trauma Service and Orthopedics was consulted. The patient underwent a right TFN to intertrochanteric femur fracture with no surgical complications. Postop course was complicated by anemia with hemoglobin as low as dipping below 7. Of note, the patient has a history pertinent for chronic iron deficiency anemia that she has experienced since bariatric surgery several years ago. She typically takes a slow-release iron at home medication and which we requested, but were unable to obtain in hospital due to logistical issues. This was most likely the explanation of her anemia. She did require one PRBC. In addition , arrangements were made for the patient to transition to a snf facility in order to receive appropriate care since it is unsure as if her independent ambulation status was appropriate for living independently at home. Etiology of fall is unknown with labs unrevealing. Echo was also obtained that showed a preserved ejection fraction. Of note, it was believed that the patient's hemoglobin was also due to chronic iron deficiency component and thus was started on Procrit with the intention of continuing for 2 more weeks. Please follow up with PCP in 2 weeks to reassess whether to continue or discontinue this medication. DISPOSITION: Stable. DISCHARGE INSTRUCTIONS: 1. Location: intermediate facility. 2. Diet: Regular diet. 3. Activity: As tolerated, please continue with physical therapy. 4. Followup: a. Please follow up with Dr. Goldy Nichols in 2 weeks. b. No need to follow up with Trauma Surgery, however, if needed you are welcome to call the office at any point. Job ID: [id number] [facility]
[2018-06-06 14:12] VITALS: BP 99/64
[2018-06-06] MEDS ORDERED: Enoxaparin Sodium 40 MG/0.4 ML SYRINGE SC SCH (21:00)
[2018-06-07] MEDS ORDERED: Epoetin (ESRD) 10,000 UNITS/ML VIAL IVP SCH (09:00)
[2018-06-07] MEDS ORDERED: Epoetin (ESRD) 20,000 UNITS/ML SC SCH (09:00)
== END 2018-06-06 11:38 | DRG 481 ==
LOC: ERS 14:25 → SJJU 18:15
PROVIDERS: ADMIT Specialist; ATTEND Specialist
PROC: 0QS636Z Reposition Right Upper Femur with Intramedullary Internal Fixation Device, Percutaneous Approach (ICD-10-PCS; principal; 2018-05-30)
PROC: 30233N1 Transfusion of Nonautologous Red Blood Cells into Peripheral Vein, Percutaneous Approach (ICD-10-PCS; 2018-06-04)
DX: S72.141A Displaced intertrochanteric fracture of right femur, initial encounter for closed fracture (principal); K90.9 Intestinal malabsorption, unspecified; F41.9 Anxiety disorder, unspecified; F43.10 Post-traumatic stress disorder, unspecified; F32.9 Major depressive disorder, single episode, unspecified; E87.6 Hypokalemia; D50.8 Other iron deficiency anemias; F17.210 Nicotine dependence, cigarettes, uncomplicated; Z88.6 Allergy status to analgesic agent; Z88.5 Allergy status to narcotic agent; Z88.8 Allergy status to other drugs, medicaments and biological substances; Z98.84 Bariatric surgery status; W18.30XA Fall on same level, unspecified, initial encounter
CPT/HCPCS: 36415; 36416; 36430; 71045; 72170; 76000; 80048; 80053; 80307; 83735; 84100; 84484; 85025; 85060; 85610; 85730; 86850; 86900; 86901; 93005; 93306; 96361; 96374; C1713; G0390; J1650; J2250; J2270; J2550; J2704; J3010; J3475; J3480; J7050; P9016; Q4081; S0028